=== PATIENT | female | born 1955 | race Caucasian/White ===

== ENCOUNTER 2016-11-11 22:22 | Emergency (ER) | payer OTHER, SELFPAY ==
[~2016-11-11] VITALS: Ht 152.4 cm; Wt 38.3 kg
[2016-11-11 22:22] VITALS: BP 134/69
[2016-11-11] MEDS ORDERED: ADVI200C5 PO (22:31)
[2016-11-12] MEDS ORDERED: ACETAMINOPH W/CODEINE #3 TAB UD PO ONE (01:00)
[2016-11-12] MEDS ORDERED: ACET30TAB PO (01:07)
--- NOTE | 2016-11-12 07:50 | REP ---
Left foot four views: There is no fracture or dislocation. There is joint space narrowing of the PIP and DIP articulations compatible with articular cartilage atrophy. There are no calcifications or foreign bodies. Impression: PIP and DIP joint space narrowing. No fracture or dislocation. Signed by Yovany Ervin MD 11/12/2016 07:41 A
[2017-01-27] MEDS ORDERED: DOXY100C37 PO (20:04)
[2017-01-27] MEDS ORDERED: TESS100C PO (20:04)
== END 2016-11-12 01:17 | disposition home or self-care (01) ==
LOC: M ED 22:22
DX: S90.32XA Contusion of left foot, initial encounter (principal); W20.8XXA Other cause of strike by thrown, projected or falling object, initial encounter; Y92.099 Unspecified place in other non-institutional residence as the place of occurrence of the external cause; Y93.9 Activity, unspecified; Y99.9 Unspecified external cause status; F17.200 Nicotine dependence, unspecified, uncomplicated

== ENCOUNTER 2017-01-11 14:34 | Emergency (ER) | payer OTHER, SELFPAY ==
[~2017-01-11] VITALS: Ht 152.4 cm; Wt 38.6 kg
[~2017-01-11 14:34] MED LIST: ACET30TAB PO; ADVI200C5 PO
[2017-01-11] MEDS ORDERED: ALBU83IN INH (16:13)
[2017-01-11] MEDS ORDERED: AVEL1TAB3 PO (16:13)
[2017-01-11] MEDS ORDERED: PRED10TA2 PO (16:13)
[2017-01-11] MEDS ORDERED: ALBUTEROL 90 MCG/ACT 8GM HFA INHALER INH ONE (16:15)
[2017-01-11 16:21] VITALS: BP 119/65
[2017-01-27] MEDS ORDERED: DOXY100C37 PO (20:04)
[2017-01-27] MEDS ORDERED: TESS100C PO (20:04)
== END 2017-01-11 16:43 | disposition home or self-care (01) ==
LOC: M ED 14:34
DX: J20.9 Acute bronchitis, unspecified (principal); J44.1 Chronic obstructive pulmonary disease with (acute) exacerbation; F17.200 Nicotine dependence, unspecified, uncomplicated

== ENCOUNTER 2017-04-07 15:52 | Emergency (ER) | payer SELFPAY | END 2017-04-07 17:28 | disposition home or self-care (01) | LOC: M ED 15:52 | DX: J01.90 Acute sinusitis, unspecified (principal); J44.9 Chronic obstructive pulmonary disease, unspecified; F17.200 Nicotine dependence, unspecified, uncomplicated | CPT/HCPCS: 99282 ==

== ENCOUNTER 2022-01-07 18:27 | Emergency (ER) | payer SELFPAY ==
[~2022-01-07] VITALS: Ht 152.4 cm; Wt 45.5 kg
[~2022-01-07 18:27] MED LIST changes: +ACET-716 PO; -ACET30TAB PO; +ALBU2.5V10 INH; +AUGM875T28 PO; +AVEL1TAB3 PO; +DOXY-443 PO; +PRED10TA2 PO; +PRED20TA PO; +TESS100C PO; +VENTAER IN
[2022-01-07 18:28] VITALS: BP 169/93
[2022-01-08] MEDS ORDERED: VENTAER INH (18:49)
[2022-01-08] MEDS ORDERED: PRED20TA PO (18:49)
== END 2022-01-07 20:13 | disposition left against medical advice (07) ==
LOC: EDBD → M ED 18:27
DX: R06.02 Shortness of breath (principal); J44.9 Chronic obstructive pulmonary disease, unspecified; F17.200 Nicotine dependence, unspecified, uncomplicated; Z79.51 Long term (current) use of inhaled steroids; Z53.21 Procedure and treatment not carried out due to patient leaving prior to being seen by health care provider

== ENCOUNTER 2022-01-08 12:24 | Emergency (ER) | payer MEDICARE, SELFPAY ==
[~2022-01-08] VITALS: Ht 152.4 cm; Wt 35.2 kg
[2022-01-08 12:25] VITALS: BP 174/84
[2022-01-08] MEDS ORDERED: methylPREDNISolone 125MG 2ML VIAL IV ONE (15:05)
[2022-01-08] MEDS ORDERED: NS 500 ML IV ONE (15:05)
[2022-01-08] MEDS ORDERED: ALBUTEROL 90 MCG/ACT 8GM HFA INHALER INH ONE (15:05)
[2022-01-08 16:35] LABS: BASO # 0.1 10^3/uL (0.0-0.2); BASO % 0.7 % (0.0-1.0); EOS # 0.2 10^3/uL (0.0-0.5); EOS % 1.5 % (0.0-3.0); HEMATOCRIT 40.8 % (36.0-47.0); HEMOGLOBIN 13.5 g/dl (12.0-15.5); LYMPH # 2.1 10^3/uL (1.5-5.0); LYMPH % 15.5 % (24.0-44.0); MEAN CORPUSCULAR HEMOGLOBIN 31.3 pg (27.0-33.0); MEAN CORPUSCULAR HGB CONC 33.1 g/dl (32.0-36.5); MEAN CORPUSCULAR VOLUME 94.4 fl (80.0-96.0); MONO # 0.8 10^3/uL (0.0-0.8); MONO % 5.6 % (2.0-8.0); NEUTROPHILS # 10.5 10^3/uL (1.5-8.5); NEUTROPHILS % 76.3 % (36.0-66.0); PLATELET COUNT, AUTOMATED 400 10^3/uL (150-450); RED BLOOD COUNT 4.32 10^6/uL (4.00-5.40); WHITE BLOOD COUNT 13.7 10^3/uL (4.0-10.0)
[2022-01-08 17:02] LABS: RSV AMPLIFICATION NEGATIVE (NEGATIVE)
[2022-01-08 17:08] LABS: ALBUMIN 3.5 GM/DL (3.2-5.2); BILIRUBIN,DIRECT 0.2 MG/DL (0.0-0.2); BILIRUBIN,TOTAL 0.6 MG/DL (0.2-1.0); TOTAL PROTEIN 6.9 GM/DL (6.4-8.2)
[2022-01-08 17:10] LABS: CPK CREATINE PHOSPHOKINASE 74 U/L (26-192)
[2022-01-08] MEDS ORDERED: ISOVUE-370 76% 100ML VIAL As Ordered ONE (17:27)
[2022-01-08] MEDS ORDERED: POTASSIUM CHLORIDE 10MEQ SR TABLET PO ONE (17:45)
[2022-01-08] MEDS ORDERED: VENTAER INH (18:49)
[2022-01-08] MEDS ORDERED: PRED20TA PO (18:49)
[2022-01-09] MEDS ORDERED: VENTAER INH (20:23)
[2022-01-09] MEDS ORDERED: ACET-910 PO (20:23)
== END 2022-01-08 19:36 | disposition home or self-care (01) ==
LOC: EDBD 12:24 → M ED 12:24
DX: J44.1 Chronic obstructive pulmonary disease with (acute) exacerbation (principal); I50.21 Acute systolic (congestive) heart failure; I10 Essential (primary) hypertension; R00.0 Tachycardia, unspecified; I44.7 Left bundle-branch block, unspecified; I42.2 Other hypertrophic cardiomyopathy; F17.200 Nicotine dependence, unspecified, uncomplicated; Z79.899 Other long term (current) drug therapy; Z79.51 Long term (current) use of inhaled steroids; Z53.21 Procedure and treatment not carried out due to patient leaving prior to being seen by health care provider
CPT/HCPCS: 71046; 71275; 80047; 80076; 82550; 83880; 84484; 85025; 87631; 93005; 94640; 96361; 96374; 99284; J2930; Q9967

== ENCOUNTER 2022-01-09 16:25 | Inpatient (IN) | payer MEDICARE ==
[~2022-01-09] VITALS: Ht 152.4 cm; Wt 35.7 kg
[~2022-01-09 16:25] MED LIST changes: +VENTAER INH
[2022-01-09] MEDS ORDERED: IPRATROPIUM 0.5MG/ALBUTEROL 2.5MG INH SOL UD 3ML (DUONEB) NEB ONE (17:25)
[2022-01-09] MEDS ORDERED: methylPREDNISolone 125MG 2ML VIAL IV ONE (17:25)
[2022-01-09 17:50] LABS: ABG BASE EXCESS 3.5 (-2.0-2.0); ABG HCO3 26.5 MEQ/L (22.0-26.0); ABG O2 SATURATION 95.6 % (95.0-99.0); ABG PARTIAL PRESSURE O2 71.5 mmHg (75.0-100.0); ABG STANDARD HCO3 27.5 MEQ/L (22.0-26.0); ABG TOTAL CO2 27.6 MEQ/L (23.0-31.0); ABG pH (ARTERIAL) 7.497 UNITS (7.350-7.450)
[2022-01-09 17:57] LABS: BASO # 0.1 10^3/uL (0.0-0.2); BASO % 1.1 % (0.0-1.0); EOS # 0.2 10^3/uL (0.0-0.5); EOS % 1.4 % (0.0-3.0); HEMATOCRIT 40.1 % (36.0-47.0); HEMOGLOBIN 13.6 g/dl (12.0-15.5); LYMPH # 2.3 10^3/uL (1.5-5.0); LYMPH % 22.5 % (24.0-44.0); MEAN CORPUSCULAR HEMOGLOBIN 32.3 pg (27.0-33.0); MEAN CORPUSCULAR HGB CONC 33.9 g/dl (32.0-36.5); MEAN CORPUSCULAR VOLUME 95.2 fl (80.0-96.0); MONO # 0.7 10^3/uL (0.0-0.8); MONO % 6.4 % (2.0-8.0); NEUTROPHILS # 7.1 10^3/uL (1.5-8.5); NEUTROPHILS % 68.3 % (36.0-66.0); PLATELET COUNT, AUTOMATED 363 10^3/uL (150-450); RED BLOOD COUNT 4.21 10^6/uL (4.00-5.40); WHITE BLOOD COUNT 10.4 10^3/uL (4.0-10.0)
[2022-01-09 18:22] LABS: CPK CREATINE PHOSPHOKINASE 79 U/L (26-192)
[2022-01-09 18:29] LABS: ALT/SGPT 16 U/L (12-78); BILIRUBIN,DIRECT 0.2 MG/DL (0.0-0.2); BILIRUBIN,TOTAL 0.7 MG/DL (0.2-1.0); BLOOD UREA NITROGEN 11 MG/DL (7-18); CALCIUM LEVEL 9.4 MG/DL (8.8-10.2); CARBON DIOXIDE LEVEL 31 MEQ/L (21-32); CHLORIDE LEVEL 98 MEQ/L (98-107); GLOMERULAR FILTRATION RATE > 60.0 (>45); GLUCOSE, FASTING 104 MG/DL (70-100); NT-PRO BNP 2407 PG/ML (<125); SODIUM LEVEL 136 MEQ/L (136-145); TOTAL PROTEIN 7.6 GM/DL (6.4-8.2)
[2022-01-09] MEDS ORDERED: POTASSIUM CHLORIDE 10MEQ SR TABLET PO ONE (19:10)
[2022-01-09] MEDS ORDERED: hydrALAZINE 20MG/ML 1ML VIAL (J0360 PER 20MG) IV ONE ×2 (19:55→22:55)
[2022-01-09] MEDS ORDERED: VENTAER INH (20:23)
[2022-01-09] MEDS ORDERED: ACET-910 PO (20:23)
[2022-01-09] MEDS ORDERED: HOME MED LIST COMPLETE! XX SCH (20:25)
[2022-01-09] MEDS ORDERED: MAALOX 30 ML SUSP *UDC PO PRN (22:35)
[2022-01-09] MEDS ORDERED: IPRATROPIUM 0.5MG/ALBUTEROL 2.5MG INH SOL UD 3ML (DUONEB) NEB PRN (22:35)
[2022-01-09] MEDS ORDERED: ACETAMINOPHEN TAB 650MG DOSE (2X325MG) PO PRN (22:35)
[2022-01-09] MEDS ORDERED: MOM 30ML SUSPENSION UDC PO PRN (22:35)
[2022-01-09] MEDS ORDERED: amLODIPine 5 MG TAB PO SCH (22:55)
[2022-01-09] MEDS ORDERED: ALBUTEROL SULFATE 2.5 MG/0.5 ML INH NEB SOLN NEB PRN (23:25)
[2022-01-10] MEDS: IPRATROPIUM 0.5MG/ALBUTEROL 2.5MG INH SOL UD 3ML (DUONEB) NEB SCH ×3 (00:07→07:24)
[2022-01-10 00:40] VITALS: BP 132/86
[2022-01-10 04:00] VITALS: BP 156/72
[2022-01-10] MEDS: methylPREDNISolone 40MG 1ML VIAL IV SCH ×3 (05:42→21:00)
[2022-01-10 05:55] LABS: HEMOGLOBIN A1c 5.5 %
[2022-01-10] MEDS ORDERED: HEPARIN SOD (PORCINE) 5000UNITS/ML 1ML VIAL/SYRINGE SC SCH (06:00)
[2022-01-10 06:03] LABS: BLOOD UREA NITROGEN 15 MG/DL (7-18); CALCIUM LEVEL 9.3 MG/DL (8.8-10.2); CARBON DIOXIDE LEVEL 29 MEQ/L (21-32); CHLORIDE LEVEL 102 MEQ/L (98-107); CREATININE FOR GFR 0.97 MG/DL (0.55-1.30); GLOMERULAR FILTRATION RATE > 60.0 (>45); GLUCOSE, FASTING 197 MG/DL (70-100); POTASSIUM SERUM 3.8 MEQ/L (3.5-5.1); SODIUM LEVEL 137 MEQ/L (136-145)
[2022-01-10 07:49] VITALS: BP 148/88
[2022-01-10] MEDS ORDERED: LEVALBUTEROL 1.25 MG/0.5 ML CONCENTRATE NEB INH PRN (08:00)
[2022-01-10] MEDS: LEVALBUTEROL 1.25 MG/0.5 ML CONCENTRATE NEB INH SCH ×5 (08:00→23:22)
[2022-01-10] MEDS: IPRATROPIUM 0.02% SOLN 0.5MG 2.5ML NEB INH SCH ×5 (08:00→23:21)
[2022-01-10] MEDS ORDERED: IPRATROPIUM 0.02% SOLN 0.5MG 2.5ML NEB INH PRN (08:00)
[2022-01-10] MEDS: BUDESONIDE 0.5 MG/2 ML INHALATION SUSPENSION INH SCH ×2 (08:00→19:31)
[2022-01-10] MEDS ORDERED: ASPIRIN 81 MG CHEW TABLET PO SCH (09:00)
[2022-01-10 12:00] VITALS: BP 156/72
[2022-01-10 16:00] VITALS: BP 140/70
[2022-01-10 20:00] VITALS: BP 140/65
[2022-01-10] MEDS: APIXABAN 5 MG TAB (ELIQUIS) PO SCH (21:00)
[2022-01-11] MEDS: IPRATROPIUM 0.02% SOLN 0.5MG 2.5ML NEB INH SCH ×4 (03:36→15:19)
[2022-01-11] MEDS: LEVALBUTEROL 1.25 MG/0.5 ML CONCENTRATE NEB INH SCH ×4 (03:36→15:19)
[2022-01-11 04:00] VITALS: BP 164/80
[2022-01-11 04:45] VITALS: BP 164/80
[2022-01-11] MEDS: methylPREDNISolone 40MG 1ML VIAL IV SCH ×2 (05:15→14:00)
[2022-01-11] MEDS: BUDESONIDE 0.5 MG/2 ML INHALATION SUSPENSION INH SCH (07:44)
[2022-01-11 08:00] VITALS: BP 147/70
[2022-01-11] MEDS: APIXABAN 5 MG TAB (ELIQUIS) PO SCH (08:20)
[2022-01-11] MEDS ORDERED: SPIR1CAP INH (10:07)
[2022-01-11] MEDS ORDERED: DOXY-350 PO (10:07)
[2022-01-11] MEDS ORDERED: PULM90IN INH (10:07)
[2022-01-11] MEDS ORDERED: ELIQ5TAB PO ×2 (10:07→11:58)
[2022-01-11] MEDS ORDERED: PRED10TA2 PO (10:07)
[2022-01-11] MEDS ORDERED: ALBU6.7H6 INH (10:07)
[2022-01-11] MEDS ORDERED: SELF1KIT MC (10:11)
[2022-01-11] MEDS ORDERED: CORE12.5 PO (10:11)
[2022-01-11] MEDS ORDERED: AMLO1TAB25 PO (10:12)
[2022-01-11] MEDS ORDERED: CARVedilol 12.5 MG TAB PO ONE (11:00)
[2022-01-11 11:24] VITALS: BP 138/70
[2022-01-11] MEDS ORDERED: FLUT11IN INH (11:55)
[2022-01-11 11:56] VITALS: BP 138/70
[2022-01-11] MEDS ORDERED: PRIL20TA2 PO (11:58)
[2022-01-11 13:06] VITALS: BP 129/65
[2022-01-17] MEDS ORDERED: APIXABAN 5 MG TAB (ELIQUIS) PO SCH (21:00)
== END 2022-01-11 16:09 | disposition home health service (06) | DRG 191 ==
LOC: M ED 16:25 → M ED INP 22:31 → ENRESERV 23:18 → M PCU 01-10 00:25
PROVIDERS: ADMIT Internal Medicine; ATTEND General Practice
DX: J44.1 Chronic obstructive pulmonary disease with (acute) exacerbation (principal); E87.3 Alkalosis; I27.82 Chronic pulmonary embolism; E46 Unspecified protein-calorie malnutrition; Z68.1 Body mass index [BMI] 19.9 or less, adult; I47.1 Supraventricular tachycardia; I16.0 Hypertensive urgency; E87.6 Hypokalemia; F17.210 Nicotine dependence, cigarettes, uncomplicated; R94.31 Abnormal electrocardiogram [ECG] [EKG]; Z66 Do not resuscitate; R07.9 Chest pain, unspecified; Z79.899 Other long term (current) drug therapy

== ENCOUNTER → 2022-06-17 | Outpatient (CLI) | payer MEDICARE, OTHER ==
[~2022-06-17] MED LIST changes: +ACET-910 PO; +ALBU6.7H6 INH; +AMLO1TAB25 PO; +CORE12.5 PO; +DOXY-444 PO; +ELIQ5TAB PO; +FLUT11IN INH; +PRIL20TA2 PO; +PULM90IN INH; +SELF1KIT MC; +SPIR1CAP INH
== END ==
LOC: M RAD 11:41
PROVIDERS: ATTEND Internal Medicine Pulmonary Disease
DX: I26.99 Other pulmonary embolism without acute cor pulmonale (principal)
CPT/HCPCS: 71046; 78582; A9540; A9567

== ENCOUNTER → 2023-02-04 | Outpatient (CLI) | payer MEDICARE, MEDICAID ==
[~2023-02-04] MED LIST changes: -FLUT11IN INH; +FLUT12AE6 INH
[2023-02-04 14:37] LABS: BLOOD UREA NITROGEN 10 MG/DL (9-23); CREATININE FOR GFR 0.77 MG/DL (0.55-1.30); GLOMERULAR FILTRATION RATE > 60.0 (>45)
== END ==
LOC: M PLALAB 10:18
PROVIDERS: ATTEND Internal Medicine Pulmonary Disease
DX: J44.9 Chronic obstructive pulmonary disease, unspecified (principal); I26.99 Other pulmonary embolism without acute cor pulmonale

== ENCOUNTER → 2023-02-06 | Outpatient (CLI) | payer MEDICARE, MEDICAID ==
[~2023-02-06] MED LIST changes: +ISOVUE-370 76% 100ML VIAL ONE
== END ==
LOC: M PLAIMG 09:55
PROVIDERS: ATTEND Internal Medicine Pulmonary Disease
DX: I26.99 Other pulmonary embolism without acute cor pulmonale (principal); J43.2 Centrilobular emphysema; J43.8 Other emphysema; R59.9 Enlarged lymph nodes, unspecified
CPT/HCPCS: 71275; Q9967

== ENCOUNTER → 2023-02-13 | Outpatient (REF) | payer MEDICARE ==
[~2023-02-13] MED LIST changes: -ISOVUE-370 76% 100ML VIAL ONE
[2023-02-13 22:15] LABS: AMORPHOUS SEDIMENT SMALL (NEGATIVE); APPEARANCE, URINE TURBID (CLEAR); BACTERIA, URINE AUTO 2+ (NEGATIVE); BILIRUBIN, URINE AUTO 1+ (NEGATIVE); BLOOD, URINE BLOOD 1+ (NEGATIVE); COLOR, URINE AMBER (YELLOW); GLUCOSE, URINE (UA) AUTO NEGATIVE (NEGATIVE); KETONE, URINE AUTO NEGATIVE (NEGATIVE); LEUKOCYTE ESTERASE, URINE AUTO 2+ (NEGATIVE); MUCUS, URINE SMALL (NEGATIVE); NITRITE, URINE AUTO POSITIVE (NEGATIVE); PROTEIN, URINE AUTO 3+ mg/dL (NEGATIVE); RBC, URINE AUTO 15 /HPF (0-3); SPECIFIC GRAVITY URINE AUTO 1.019 (1.002-1.035); SQUAMOUS EPITHELIAL CELL UR AU 3 /HPF (0-6); TRIPLE PHOSPHATE CRYSTALS SMALL; UROBILINOGEN, URINE AUTO 0.2 mg/dL (0.0-2.0); WBC, URINE AUTO 22 /HPF (0-3)
== END ==
LOC: M LAB REF 21:31
PROVIDERS: ATTEND Physician Assistant
DX: N39.0 Urinary tract infection, site not specified (principal)

== ENCOUNTER → 2023-05-06 | Outpatient (CLI) | payer MEDICARE | LOC: M PLAIMG 10:26 | PROVIDERS: ATTEND Internal Medicine Cardiovascular Disease | DX: R06.02 Shortness of breath (principal); R94.31 Abnormal electrocardiogram [ECG] [EKG]; I27.23 Pulmonary hypertension due to lung diseases and hypoxia ==

== ENCOUNTER → 2023-09-23 | Outpatient (CLI) | payer MEDICARE ==
[~2023-09-23] MED LIST changes: +DOXY-323 PO; +DOXY-440 PO; -DOXY-443 PO; -DOXY-444 PO
== END ==
LOC: M PLAIMG 10:17
PROVIDERS: ATTEND Internal Medicine Pulmonary Disease
DX: R91.8 Other nonspecific abnormal finding of lung field (principal); J44.9 Chronic obstructive pulmonary disease, unspecified

== ENCOUNTER → 2024-06-16 | Outpatient (CLI) | payer MEDICARE, MEDICAID ==
[~2024-06-16] MED LIST changes: +BUDE90AE INH; -DOXY-323 PO; +DOXY-441 PO; -PULM90IN INH
== END ==
LOC: M PLAIMG 09:46
PROVIDERS: ATTEND Internal Medicine Pulmonary Disease
DX: R91.8 Other nonspecific abnormal finding of lung field (principal); J44.9 Chronic obstructive pulmonary disease, unspecified; J98.11 Atelectasis

== ENCOUNTER → 2024-12-03 | Outpatient (CLI) | payer MEDICARE, MEDICAID ==
[~2024-12-03] MED LIST changes: +ELIQ2.5T PO
== END ==
LOC: M PLAIMG 12:29
PROVIDERS: ATTEND Internal Medicine Pulmonary Disease
DX: R91.8 Other nonspecific abnormal finding of lung field (principal)